=== PATIENT | female | born 1975 | race African-American/Black ===

== ENCOUNTER 2017-11-26 12:08 | Emergency (ER) | payer OTHER ==
[~2017-11-26] VITALS: Ht 180.3 cm; Wt 125.2 kg
[2017-11-26 12:16] VITALS: Ht 180.3 cm; Wt 125.2 kg
[2017-11-26 13:06] LABS: CALCIUM 8.6 mg/dL (8.5-10.1); CHLORIDE SERUM 105 mmol/L (98-107); CREATININE SERUM 0.8 mg/dL (0.6-1.0); GFR1 > 60 mL/min; GLUCOSE SERUM 84 mg/dL (74-106); POTASSIUM SERUM 3.8 mmol/L (3.5-5.1); SODIUM SERUM 141 mmol/L (136-145)
[2017-11-26 13:12] LABS: BASOPHIL % 0.6 % (0-2); PLATELET COUNT 232 x10^3mcL (130-400)
[2017-11-26 13:29] LABS: rbc morphology (normal/abnorm) ABNORMAL (NORMAL)
[2017-11-26 13:30] LABS: ovalocyte/elliptocyte 1+
[2017-11-26 14:01] VITALS: BP 139/75
== END 2017-11-26 14:01 | disposition home or self-care (01) ==
LOC: ED 12:08
PROVIDERS: Emergency Medicine
DX: S16.1XXA Strain of muscle, fascia and tendon at neck level, initial encounter (principal); M54.12 Radiculopathy, cervical region; R03.0 Elevated blood-pressure reading, without diagnosis of hypertension; X58.XXXA Exposure to other specified factors, initial encounter; Y93.89 Activity, other specified; Y92.89 Other specified places as the place of occurrence of the external cause; Y99.8 Other external cause status
CPT/HCPCS: 36415; J3010

== ENCOUNTER 2018-04-22 20:02 | Emergency (ER) | payer OTHER ==
[2018-04-22 20:41] VITALS: Ht 180.3 cm
[2018-04-22 22:06] LABS: BASOPHIL % 0.5 % (0-2); PLATELET COUNT 277 x10^3mcL (130-400)
[2018-04-22 22:10] LABS: RED CELL DISTRIBUTION WIDTH 16.9 % (11.5-14.5)
[2018-04-22 22:15] LABS: CALCIUM 8.7 mg/dL (8.5-10.1); CARBON DIOXIDE 26.2 mmol/L (21-32); CHLORIDE SERUM 102 mmol/L (98-107); CREATININE SERUM 0.8 mg/dL (0.6-1.0); GFR1 > 60 mL/min; GLUCOSE SERUM 88 mg/dL (74-106); POTASSIUM SERUM 3.3 mmol/L (3.5-5.1); SODIUM SERUM 135 mmol/L (136-145)
[2018-04-22 22:20] LABS: ALBUMIN 3.4 g/dL (3.4-5.0); ALKALINE PHOSPHATASE 79 U/L (46-116); ALT/SGPT 16 U/L (14-59); AST/SGOT 11 U/L (15-37); BILIRUBIN TOTAL 0.49 mg/dL (0.20-1.00); C REACTIVE PROTEIN 4.7 mg/dL (<=0.9); TOTAL PROTEIN, SERUM 7.7 g/dL (6.4-8.2)
[2018-04-22 23:22] LABS: ERYTHROCYTE SED RATE 47 mm/hr (0-20)
[2018-04-23 01:17] VITALS: BP 124/79
== END 2018-04-23 01:17 | disposition home or self-care (01) ==
LOC: ED 20:02
PROVIDERS: Specialist
DX: N63.0 Unspecified lump in unspecified breast (principal)
CPT/HCPCS: 36415; 76641